=== PATIENT | female | born 2000 | race Caucasian/White ===

== ENCOUNTER 2022-11-02 14:23 | Outpatient (CLI) | payer SELFPAY ==
[~2022-11-02] VITALS: Ht 154.9 cm; Wt 54.1 kg
[2022-11-02] MEDS ORDERED: PRENATAL TABLET PO (15:03)
--- NOTE | 2022-11-02 15:15 | NUR ---
Pt arrives ambulatory to unit with FOB, changes into gown and sits on bedside. 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 EFM explained and placed, VS taken. SVE /-2, soft and mid position. Pt denies any leaking of fluid or vaginal bleeding, good movement noted. Pt states contractions are about every 5 minutes and pain is 5/10. Contraction palpated as mild-moderate. Admission assessments done. Labor check process discussed with pt, pt and FOB verbalized understanding.
[2022-11-02 15:30] VITALS: BP 118/79; PULSE 80; TEMP 98.5
--- NOTE | 2022-11-02 16:30 | NUR ---
Discussed with pt through cloth sponger Maria Alejandra that cervix had not changed. Pt informed she is probably in early labor and contractions may continue, but these contractions are not changing the cervix. Pt instructed to return to the hospital if water breaks, vaginal bleeding, decrease in baby's movements, or contractions become too strong to walk or talk through and every 3-5 minutes. Education provided on Early Labor. Questions invited, asked, and answered. Pt verbalizes understanding.
[2022-11-04] MEDS ORDERED: IBU800 M1 PO (08:22)
[2022-11-04] MEDS ORDERED: TYLENOL 500MG500 MG PO (08:23)
== END 2022-11-02 16:35 | disposition home or self-care (01) ==
LOC: LDRO 14:23
DX: O62.9 Abnormality of forces of labor, unspecified (principal); Z3A.39 39 weeks gestation of pregnancy